=== PATIENT | female | born 1950 | race Caucasian/White ===

== ENCOUNTER → 2017-04-17 | Outpatient (CLI) | payer BC | LOC: BMCIMAGING 16:31 | PROVIDERS: ATTEND Internal Medicine | DX: R91.8 Other nonspecific abnormal finding of lung field (principal) ==

== ENCOUNTER 2017-04-21 18:46 | Inpatient (IN) | payer BC, OTHER ==
--- NOTE | 2017-04-21 19:04 | EDPHY ---
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 Chest x-ray reviewed and shows a left lower lobe developing opacity. Patient was started on Biaxin Monday evening and reports that she has been compliant and started feeling better until when she spiked a temperature again as high as 101.4F. She also notes over the last 1 day she has had burning with urination, urinary frequency. Patient denies any chest pain/palpitations/abdominal pain/nausea/vomiting. Did not receive her influenza vaccine this year but reports that she has swab for influenza a and B in the office and it was negative. She has not had any recent long distance trips. became concerned as last night she noted her O2 sats at home to be 80-82% on room air. Modifying Factors: Biaxin, Tylenol, ibuprofen Comment: ROS: see HPI Constitutional: No fever, no chills, no weight loss Eyes: No blurred vision Respiratory: No shortness of breath, no cough Cardiovascular: No chest pain Gastrointestinal: No nausea, no vomiting, no diarrhea Genitourinary: No dysuria Extremities: No myalgias Neurologic: No weakness, no numbness Skin: No rashes Hematologic: No bruising, no bleeding MEDICAL/SURGICAL/SOCIAL HISTORY: Medical/SURGICAL history: scoliosis L shoulder surgery abdominal surgery - fibroid tumor with internal bleeding "chronic pain and stress from flying" (airplane flight 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 Tympanic membranes clear. Oropharynx clear, no exudate and moist pink mucosa. Airway patent. No lymphadenopathy. No meningismus. Cardiovascular: Normal S1/S2, regular rate, regular rhythm, without murmur rub or gallop. PULMONARY/CHEST: Symmetrical and nontender. Clear to auscultation with diminished bases. Good air movement. No accessory muscle usage. ABDOMEN: Soft, nondistended, nontender, no rebound, no guarding, no peritoneal signs, no masses or organomegaly. No CVAT. EXTREMITIES: 2/2 pulses, strength 5/5, no deformities, no clubbing, no cyanosis or edema. NEUROLOGICAL: no focal neuro deficits. GCS 15. SKIN: Warm and dry, no erythema. no rash. Good capillary refill. Source: Patient Exam Limitations: No limitations - Personal History Current Tetanus/Diphtheria Vaccine: Yes Tetanus Vaccine Date: 2011 - Medical/Surgical History Hx Asthma: Yes Hx Chronic Respiratory Disease: No Hx Diabetes: No Hx Cardiac Disease: No Hx Renal Disease: No Hx Cirrhosis: No Hx Alcoholism: No Hx HIV/AIDS: No Hx Splenectomy or Spleen Trauma: No Other PMH: scoliosis. L shoulder surgery. abdominal surgery - fibroid tumor with internal bleeding. 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 osteoporosis/ R LEG FX - Social History Smoking Status: Never smoked Constitutional: Initial Vital Signs Temperature (C) 36.7 C 04/21/17 18:50 Heart Rate 88 04/21/17 18:50 Respiratory Rate 18 04/21/17 18:50 Blood Pressure 100/72 04/21/17 18:50 O2 Sat (%) 82 L 04/21/17 18:50 O2 Delivery Mode Room Air O2 (L/minute) 4 Allergies/Adverse Reactions: Cephalosporins Allergy (Verified 04/21/17 18:49) Home Medications: Medication Instructions Recorded Albuterol [Proventil Inhaler HFA 2 puffs IH Q4 PRN #1 mdi 12/12/13 (*)] Cymbalta 12/12/13 LYRICA 12/12/13 Lipitor 10 mg (RX) 12/12/13 Valium 12/12/13 Vicodin 5-300 mg Tablet 12/12/13 Carisoprodol [Soma] 350 mg PO 09/29/15 Biaxin (*) 04/21/17 Breo Ellipta 100-25 Mcg INH 04/21/17 Medical Decision Making - Diagnostics Imaging Results: Imaging Impressions Chest X-Ray 04/21/17 19:05 Impression: Favor linear atelectasis rather than pneumonia and the left lung base is unchanged since 4 days prior. Recommend follow-up radiograph in 4-6 weeks. ED Course/Re-evaluation: Chest x-ray, blood cultures, labs including lactic acid, urinalysis, EKG, IV fluids and IV medication Ordered Will evaluate for sepsis pulmonary versus urine etiology Vital signs noted upon arrival in O2 sats were 82% on room air; placed on 2 L nasal cannula and O2 sats came up to 96-99% Labs reviewed. D-dimer, troponin, proBNP within normal limits. Chest x-ray shows continued left lower lobe opacity Urinalysis shows infection; sent for urine culture As patient failed macrolide outpatient; given IV Levaquin 2100: ED decision to consult for admission for failure of outpatient treatment of pneumonia as well as urinary tract infection. Spoke with hospitalist Dr. Kennedy, who kindly accepts patient to admit and provide further care Differential Diagnosis: Shortness of breath including but not limited to pulmonary infectious process, COPD, asthma, pulmonary embolus and congestive heart failure. - Data Points Laboratory Results: Laboratory Results 04/21/17 19:12 04/21/17 19:12 04/21/17 04/21/17 04/21/17 20:24 19:12 19:12 WBC RBC Hgb Hct MCV MCH MCHC RDW Plt Count MPV Neut % (Auto) Lymph % (Auto) [place] % (Auto) Eos % (Auto) Baso % (Auto) Nucleat RBC Rel Count Absolute Neuts (auto) Absolute Lymphs (auto) Absolute Monos (auto) Absolute Eos (auto) Absolute Basos (auto) Absolute Nucleated RBC Immature Gran % Immature Gran # PT 12.8 SEC SEC (12.0-15.0) INR 0.97 (0.83-1.16) APTT 30.6 SEC SEC (23.0-38.0) D-Dimer 0.29 ug/mLFEU ug/mLFEU (0.00-0.50) VBG Lactic Acid Sodium 137 mEq/L mEq/L (134-144) Potassium 4.2 mEq/L mEq/L (3.5-5.2) Chloride 98 mEq/L mEq/L (97-110) Carbon Dioxide 29 mEq/l mEq/l (22-31) Anion Gap 10 mEq/L mEq/L (8-16) BUN 12 mg/dL mg/dL (7-23) Creatinine 0.8 mg/dL mg/dL (0.6-1.0) Estimated GFR > 60 Glucose 98 mg/dL mg/dL (70-100) Calcium 9.1 mg/dL mg/dL (8.5-10.4) Total Bilirubin 0.4 mg/dL mg/dL (0.1-1.4) Troponin I < 0.012 ng/mL ng/mL (0.000-0.034) NT-Pro-B Natriuret Pep 101 pg/mL pg/mL (0-125) Urine Color YELLOW Urine Appearance HAZY Urine pH 7.0 (5.0-7.5) Ur Specific [place] 1.006 (1.002-1.030) Urine Protein NEGATIVE (NEGATIVE) Urine Ketones NEGATIVE (NEGATIVE) Urine Blood 3+ H (NEGATIVE) Urine Nitrate NEGATIVE (NEGATIVE) Urine Bilirubin NEGATIVE (NEGATIVE) Urine Urobilinogen NEGATIVE EU EU (0.2-1.0) Ur Leukocyte Esterase 3+ H (NEGATIVE) Urine RBC 25-50 /hpf H /hpf (0-3) Urine WBC 50-182 /hpf H /hpf (0-3) Ur Epithelial Cells TRACE /lpf /lpf (NONE-1+) Urine Bacteria 1+ /hpf H /hpf (NONE SEEN) Urine Mucus 1+ /lpf /lpf (NONE-1+) Urine Glucose NEGATIVE (NEGATIVE) 04/21/17 04/21/17 19:12 19:12 WBC 7.52 10^3/uL 10^3/uL (3.80-9.50) RBC 4.22 10^6/uL 10^6/uL (4.18-5.33) Hgb 13.1 g/dL g/dL (12.6-16.3) Hct 38.6 % % (38.0-47.0) MCV 91.5 fL fL (81.5-99.8) MCH 31.0 pg pg (27.9-34.1) MCHC 33.9 g/dL g/dL (32.4-36.7) RDW 13.4 % % (11.5-15.2) Plt Count 246 10^3/uL 10^3/uL (150-400) MPV 10.4 fL fL (8.7-11.7) Neut % (Auto) 74.1 % % (39.3-74.2) Lymph % (Auto) 14.5 % L % (15.0-45.0) [place] % (Auto) 7.8 % % (4.5-13.0) Eos % (Auto) 2.8 % % (0.6-7.6) Baso % (Auto) 0.7 % % (0.3-1.7) Nucleat RBC Rel Count 0.0 % % (0.0-0.2) Absolute Neuts (auto) 5.57 10^3/uL 10^3/uL (1.70-6.50) Absolute Lymphs (auto) 1.09 10^3/uL 10^3/uL (1.00-3.00) Absolute Monos (auto) 0.59 10^3/uL 10^3/uL (0.30-0.80) Absolute Eos (auto) 0.21 10^3/uL 10^3/uL (0.03-0.40) Absolute Basos (auto) 0.05 10^3/uL 10^3/uL (0.02-0.10) Absolute Nucleated RBC 0.00 10^3/uL 10^3/uL (0-0.01) Immature Gran % 0.1 % % (0.0-1.1) Immature Gran # 0.01 10^3/uL 10^3/uL (0.00-0.10) PT INR APTT D-Dimer VBG Lactic Acid 0.7 mmol/L mmol/L (0.7-2.1) Sodium Potassium Chloride Carbon Dioxide Anion Gap BUN Creatinine Estimated GFR Glucose Calcium Total Bilirubin Troponin I NT-Pro-B Natriuret Pep Urine Color Urine Appearance Urine pH Ur Specific [place] Urine Protein Urine Ketones Urine Blood Urine Nitrate Urine Bilirubin Urine Urobilinogen Ur Leukocyte Esterase Urine RBC Urine WBC Ur Epithelial Cells Urine Bacteria Urine Mucus Urine Glucose Medications Given: Discontinued Medications Sodium Chloride (Ns) 1,000 mls @ 0 mls/hr IV EDNOW ONE; Wide Open PRN Reason: Protocol Stop: 04/21/17 19:20 Last Admin: 04/21/17 19:35 Dose: 1,000 mls Departure - Departure Disposition: [facility] Inpatient Acute Clinical Impression: Failure of outpatient treatment Community acquired pneumonia Qualifiers: Laterality: left Lung location: lower lobe of lung Qualified Code(s): J18.1 - Lobar pneumonia, unspecified organism Urinary tract infection Qualifiers: Urinary tract infection type: acute cystitis Hematuria presence: without hematuria Qualified Code(s): N30.00 - Acute cystitis without hematuria
[2017-04-21] MEDS ORDERED: NS 1,000 ML IV ONE (19:19)
[2017-04-21 19:23] LABS: PLATELET COUNT 246 10^3/uL (150-400)
[2017-04-21 19:34] LABS: INR 0.97 (0.83-1.16); PROTIME(PATIENT) 12.8 SEC (12.0-15.0)
--- NOTE | 2017-04-21 20:35 | CPEKG ---
Heart Rate: 77 RR Interval: 779 P-R Interval: 200 QRSD Interval: 84 QT Interval: 408 QTC Interval: 462 P [place]: 21 QRS [place]: 36 T Wave [place]: -8 EKG Severity - BORDERLINE ECG - EKG Impression: SINUS RHYTHM EKG Impression: BORDERLINE T ABNORMALITIES, INFERIOR LEADS Electronically Signed By: David Coleman 22-Apr-2017 00:06:33
--- NOTE | 2017-04-21 20:35 | CPEKG ---
Heart Rate: 77 RR Interval: 779 P-R Interval: 200 QRSD Interval: 84 QT Interval: 408 QTC Interval: 462 P [place]: 21 QRS [place]: 36 T Wave [place]: -8 EKG Severity - BORDERLINE ECG - EKG Impression: SINUS RHYTHM EKG Impression: BORDERLINE T ABNORMALITIES, INFERIOR LEADS Electronically Signed By: David Coleman 22-Apr-2017 00:06:33
[2017-04-21] MEDS ORDERED: CARISOPRODOL 350 MG TAB PO PRN (22:40)
[2017-04-21] MEDS ORDERED: ONDANSETRON DISINTEGRATING 4 MG TAB PO PRN (22:41)
[2017-04-21] MEDS ORDERED: ALBUTEROL 3 ML DEYVIAL IH PRN (22:41)
[2017-04-21] MEDS ORDERED: ONDANSETRON 4 MG/2 ML VIAL IVP PRN (22:41)
[2017-04-21] MEDS ORDERED: ACETAMINOPHEN 325 MG TAB PO PRN (22:41)
[2017-04-21] MEDS ORDERED: NS 500 ML IV ONE (22:53)
--- NOTE | 2017-04-21 22:59 | PDGENHP ---
History and Physical - Chief Complaint SOB, Fever - History of Present Illness 66 yo female who was diagnosed with Pneumonia on 04/17 and started on Biaxin. Initially improved but has relapsed in the last couple of days. Now also has UTI sx's. Is requiring supplemental O2. Has e/o of Hypotension. CXR shows left sided infiltrate. UA c/w likely UTI. Serum lactate is normal. No Leukocytosis. She had an unremarkable influenza testing last week. She also c/o intermittent nause and abd discomfort. No Diarrhea. Some constipation. Denies CP, palpitations, leg swelling. +urinary increased frequency and dysuria. PMHx;scoliosis, chronic pain, osteoporosis PSHx:L shoulder surgerym abdominal surgery - fibroid tumor with internal bleeding Social history: , No tobacco FmHx: DE History Information - Allergies/Home Medication List Allergies/Adverse Reactions: Cephalosporins Allergy (Verified 04/21/17 18:49) Home Medications: Carisoprodol [Soma] 350 mg PO TID PRN 09/29/15 [Last Taken 04/20/17] Albuterol [Ventolin Hfa Inhaler] 2 puffs IH Q4 PRN 04/21/17 [Last Taken 08:00] Alendronate Sodium [Fosamax 70 MG (*)] 70 mg PO FR@0700 04/21/17 [Last Taken 09/02] Atorvastatin Calcium [Lipitor 10 mg (*)] 10 mg PO HS 04/21/17 [Last Taken ] Carboxymethylcellulos/Glycerin [Refresh Optive Eye Drops] 1 drop OP QID PRN 09/02 [Last Taken Unknown] Cholecalciferol Vit D3 [Vitamin D3 (*)] 5,000 units PO DAILY 04/21/17 [Last Taken Unknown] Clarithromycin [Biaxin (*)] 500 mg PO BID 04/21/17 [Last Taken 04/21/17 08:00] DULoxetine [Cymbalta 60 MG (*)] 60 mg PO DAILY 04/21/17 [Last Taken 04/21/17 08: 00] Diazepam [Valium 10 MG (*)] 5 mg PO HS 04/21/17 [Last Taken 04/20/17] Fluticasone/Vilanterol [Breo Ellipta 100-25 Mcg INH] 1 each IH BID 04/21/17 [ Last Taken 04/21/17 08:00] HYDROcodone/CPM TUSSIONEX [Tussionex Suspension (RX)] 5 ml PO BID 04/21/17 [ Last Taken 04/21/17 09:00] Herbals/Supplements -Info Only 1 ea PO DAILY 04/21/17 [Last Taken Unknown] Lidocaine 5% [Lidoderm 5% Patch (*)] 3 ea TD DAILY PRN 04/21/17 [Last Taken Unknown] Naproxen 500 mg PO BID PRN 04/21/17 [Last Taken Unknown] Pregabalin [Lyrica 75mg (*)] 75 mg PO BID 04/21/17 [Last Taken 04/21/17 08:00] Vicodin Tab 5/500mg 1 tab PO Q4-6PRN PRN 04/21/17 [Last Taken 04/20/17] oxyCODONE IR [Oxycodone Ir (*)] 5 - 10 mg PO Q4 PRN 04/21/17 [Last Taken Unknown ] I have personally reviewed and updated: medical history, surgical history - Social History Smoking Status: Never smoked Review of Systems Review of Systems: ROS: 10pt was reviewed & negative except for what was stated in HPI & below Physical Exam Physical Exam: Temp Pulse Resp BP Pulse Ox 36.7 C 88 20 89/58 L 94 04/21/17 22:10 04/21/17 22:10 04/21/17 22:10 04/21/17 22:10 04/21/17 22:10 O2 (L/minute) 2 Constitutional: no apparent distress Eyes: PERRL, EOMI Ears, Nose, Mouth, Throat: dry mucous membranes Cardiovascular: regular rate and rhythym, No edema Respiratory: no respiratory distress, rhonchi Gastrointestinal: normoactive bowel sounds, soft, non-tender abdomen Genitourinary: no bladder fullness, no bladder tenderness Skin: warm Musculoskeletal: full muscle strength Neurologic: AAOx3, sensation intact bilaterally Psychiatric: interacting appropriately, not anxious, not encephalopathic Lab Data & Imaging Review 04/21/17 19:12 04/21/17 19:12 WBC 7.52 10^3/uL (3.80-9.50) 04/21/17 19:12 RBC 4.22 10^6/uL (4.18-5.33) 04/21/17 19:12 Hgb 13.1 g/dL (12.6-16.3) 04/21/17 19:12 Hct 38.6 % (38.0-47.0) 04/21/17 19:12 MCV 91.5 fL (81.5-99.8) 04/21/17 19:12 MCH 31.0 pg (27.9-34.1) 04/21/17 19:12 MCHC 33.9 g/dL (32.4-36.7) 04/21/17 19:12 RDW 13.4 % (11.5-15.2) 04/21/17 19:12 Plt Count 246 10^3/uL (150-400) 04/21/17 19:12 MPV 10.4 fL (8.7-11.7) 04/21/17 19:12 Neut % (Auto) 74.1 % (39.3-74.2) 04/21/17 19:12 Lymph % (Auto) 14.5 % (15.0-45.0) L 04/21/17 19:12 [place] % (Auto) 7.8 % (4.5-13.0) 04/21/17 19:12 Eos % (Auto) 2.8 % (0.6-7.6) 04/21/17 19:12 Baso % (Auto) 0.7 % (0.3-1.7) 04/21/17 19:12 Nucleat RBC Rel Count 0.0 % (0.0-0.2) 04/21/17 19:12 Absolute Neuts (auto) 5.57 10^3/uL (1.70-6.50) 04/21/17 19:12 Absolute Lymphs (auto) 1.09 10^3/uL (1.00-3.00) 04/21/17 19:12 Absolute Monos (auto) 0.59 10^3/uL (0.30-0.80) 04/21/17 19:12 Absolute Eos (auto) 0.21 10^3/uL (0.03-0.40) 04/21/17 19:12 Absolute Basos (auto) 0.05 10^3/uL (0.02-0.10) 04/21/17 19:12 Absolute Nucleated RBC 0.00 10^3/uL (0-0.01) 04/21/17 19:12 Immature Gran % 0.1 % (0.0-1.1) 04/21/17 19:12 Immature Gran # 0.01 10^3/uL (0.00-0.10) 04/21/17 19:12 PT 12.8 SEC (12.0-15.0) 04/21/17 19:12 INR 0.97 (0.83-1.16) 04/21/17 19:12 APTT 30.6 SEC (23.0-38.0) 04/21/17 19:12 D-Dimer 0.29 ug/mLFEU (0.00-0.50) 04/21/17 19:12 VBG Lactic Acid 0.7 mmol/L (0.7-2.1) 04/21/17 19:12 Sodium 137 mEq/L (134-144) 04/21/17 19:12 Potassium 4.2 mEq/L (3.5-5.2) 04/21/17 19:12 Chloride 98 mEq/L (97-110) 04/21/17 19:12 Carbon Dioxide 29 mEq/l (22-31) 04/21/17 19:12 Anion Gap 10 mEq/L (8-16) 04/21/17 19:12 BUN 12 mg/dL (7-23) 04/21/17 19:12 Creatinine 0.8 mg/dL (0.6-1.0) 04/21/17 19:12 Estimated GFR > 60 04/21/17 19:12 Glucose 98 mg/dL (70-100) 04/21/17 19:12 Calcium 9.1 mg/dL (8.5-10.4) 04/21/17 19:12 Total Bilirubin 0.4 mg/dL (0.1-1.4) 04/21/17 19:12 Troponin I < 0.012 ng/mL (0.000-0.034) 04/21/17 19:12 NT-Pro-B Natriuret Pep 101 pg/mL (0-125) 04/21/17 19:12 Urine Color YELLOW 04/21/17 20:24 Urine Appearance HAZY 04/21/17 20:24 Urine pH 7.0 (5.0-7.5) 04/21/17 20:24 Ur Specific [place] 1.006 (1.002-1.030) 04/21/17 20:24 Urine Protein NEGATIVE (NEGATIVE) 04/21/17 20:24 Urine Ketones NEGATIVE (NEGATIVE) 04/21/17 20:24 Urine Blood 3+ (NEGATIVE) H 04/21/17 20:24 Urine Nitrate NEGATIVE (NEGATIVE) 04/21/17 20:24 Urine Bilirubin NEGATIVE (NEGATIVE) 04/21/17 20:24 Urine Urobilinogen NEGATIVE EU (0.2-1.0) 04/21/17 20:24 Ur Leukocyte Esterase 3+ (NEGATIVE) H 04/21/17 20:24 Urine RBC 25-50 /hpf (0-3) H 04/21/17 20:24 Urine WBC 50-182 /hpf (0-3) H 04/21/17 20:24 Ur Epithelial Cells TRACE /lpf (NONE-1+) 04/21/17 20:24 Urine Bacteria 1+ /hpf (NONE SEEN) H 04/21/17 20:24 Urine Mucus 1+ /lpf (NONE-1+) 04/21/17 20:24 Urine Glucose NEGATIVE (NEGATIVE) 04/21/17 20:24 Assessment & Plan Assessment: #Community acquired pneumonia, Left, with failure of outpatient treatment. She does not have leukocytosis #Urinary tract infection (Acute) #Hypotension, ?Early sepsis, she reports that her BP runs in the 120's, currently low 90s. unremarkable serum lactate Plan: Observation IVF, will give bolus now Cont Levaquin Check procalcitonin Repeat Influenza testing Await cultures check sputum culture SCD's Full code
[2017-04-22] MEDS: NS 1,000 ML IV SCH ×2 (00:02→06:25)
[2017-04-22 05:49] LABS: PLATELET COUNT 221 10^3/uL (150-400)
[2017-04-22] MEDS: oxyCODONE IR 5 MG TAB PO PRN (06:41)
[2017-04-22] MEDS ORDERED: LIDOCAINE 5% 1 EA PATCH TD PRN (09:39)
[2017-04-22] MEDS ORDERED: ALBUTEROL 200 PUFFS/18 GM MDI IH PRN (09:39)
[2017-04-22] MEDS ORDERED: CARBOXYMETHYLCELLULOSE 1% 0.4 ML DROPERETTE EACHEYE PRN (10:24)
--- NOTE | 2017-04-22 10:29 | HOSPPROG ---
Hospitalist Progress Note Assessment/Plan: 66 yo female who was diagnosed with Pneumonia on 04/17 and started on Biaxin. Initially improved but has relapsed in the last couple of days. Now also has UTI sx's. Is requiring supplemental O2. Today is my first encounter with the patient/ chart reviewed. *Community acquired pna suspect it's viral evaluated chest xray/ atelectasis on Levaquin Procalcitonin is .20, low likelihood of bacterial infection afebrile, wbc stable requiring 2 liters PCR resp panel show no organism lactate stable blood cx are pending *acute hypoxemia d dimer stable no hx of smoking O2 sats on room air are 85% nursing staff to provide an IS will cont watching BNP is stable *chronic pain on continuous, chronic opioids patient has chronic back pain encouraged her to look at Physical therapy, pool therapy *persistent coughing trial of Tessalon Perls *hypotension asymptomatic patient takes scheduled narcotics *UTI awaiting urine cx *Plan: patient still hypoxic and requiring O2/ she will require another midnight stay for treatment making her IP status. Trial of Zyrtec. Subjective: Laurence isn't feeling quite well enough today for dc but overall is better. Objective: Vital Signs Temp Pulse Resp BP Pulse Ox 36.6 C 80 16 104/65 94 04/22/17 07:18 04/22/17 07:18 04/22/17 07:18 04/22/17 07:18 04/22/17 07:18 Microbiology 04/21/17 23:40 Respiratory Panel (PCR) - Final Nasal, Sinus - Swab No Organism Detected Laboratory Results 04/22/17 05:17 04/22/17 05:17 04/21/17 04/22/17 04/23/17 05:59 05:59 04:59 Intake Total 1500 Balance 1500 PT 12.8 SEC (12.0-15.0) 04/21/17 19:12 INR 0.97 (0.83-1.16) 04/21/17 19:12 - Physical Exam Constitutional: no apparent distress, appears nourished, not in pain Eyes: PERRL Ears, Nose, Mouth, Throat: hearing normal Cardiovascular: regular rate and rhythym Respiratory: no respiratory distress, other (crackles at right base) Gastrointestinal: normoactive bowel sounds Skin: warm Musculoskeletal: full muscle strength Neurologic: AAOx3 Psychiatric: interacting appropriately ICD10 Worksheet Patient Problems: Problems Problem Status Onset Community acquired pneumonia Acute Failure of outpatient treatment Acute Urinary tract infection Acute
[2017-04-22] MEDS ORDERED: NAPROXEN SODIUM 220 MG TAB PO PRN (10:30)
[2017-04-22] MEDS: HYDROcodone/CPM TUSSIONEX 5 ML UDSYR PO SCH ×2 (11:01→20:43)
[2017-04-22] MEDS ORDERED: BENZONATATE 100 MG CAP PO PRN (11:09)
[2017-04-22] MEDS: PREGABALIN 75 MG CAP PO SCH ×2 (11:34→20:43)
[2017-04-22] MEDS: DULoxetine 60 MG CAP PO SCH (11:35)
[2017-04-22] MEDS: guaiFENesin 600 MG TAB.ER PO SCH ×2 (11:35→20:43)
--- NOTE | 2017-04-22 13:25 | PDMN ---
Medical Necessity Medical necessity: C/M review: Patient meets INPT criteria under [facility] [place] M-282 Pneumonia, community acquired; Acute and persistently worsening community acquired pneumonia initially treated with course of oral Biaxin since 2016 prior to this admission, failed outpt. 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
--- NOTE | 2017-04-22 13:25 | PDMN ---
Medical Necessity Medical necessity: C/M review: Patient [place] [facility] [place] Pneumonia, community acquired; Acute and persistently worsening community acquired pneumonia initially treated with course of oral Biaxin since 2016 prior to this admission, failed outpt. 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
--- NOTE | 2017-04-22 13:25 | PDMN ---
Medical Necessity Medical necessity: C/M review: Patient meets INPT criteria under [facility] [place] M-282 Pneumonia, community acquired; Acute and persistently worsening community acquired pneumonia initially treated with course of oral Biaxin since 2016 prior to this admission, failed outpt. 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
[2017-04-22] MEDS ORDERED: NS 250 ML IV ONE (14:00)
[2017-04-22] MEDS: IPRATROPIUM/ALBUTEROL 3 ML DEYVIAL IH SCH (17:13)
--- NOTE | 2017-04-22 17:40 | ASMTCMCOM ---
CM Note CM Note Notes: Reviewed chart for discharge plan, pt's progress. Pt admitted for community acquired pneumonia, likely viral. Per MD notes, pt was initially improving but is now requiring supplemental oxygen. 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 Anticipate pt will likely d/c home independently when stable, but may require home oxygen. CM will cont to follow for any potential needs. Current Discharge Plan: Home Independently w/ family support and poss home oxygen Date Signed: 04/22/2017 05:39 PM Electronically Signed By:Elaine Garcia RN
--- NOTE | 2017-04-22 17:40 | ASMTCMCOM ---
CM Note CM Note Notes: Reviewed chart for discharge plan, pt's progress. Pt admitted for community acquired pneumonia, likely viral. Per MD notes, pt was initially improving but is now requiring supplemental oxygen. 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 Anticipate pt will likely d/c home independently when stable, but may require home oxygen. CM will cont to follow for any potential needs. Current Discharge Plan: Home Independently w/ family support and poss home oxygen Date Signed: 04/22/2017 05:39 PM Electronically Signed By:Elaine Garcia RN
--- NOTE | 2017-04-22 17:40 | ASMTCMCOM ---
CM Note CM Note Notes: Reviewed chart for discharge plan, pt's progress. Pt admitted for community acquired pneumonia, likely viral. Per MD notes, pt was initially improving but is now requiring supplemental oxygen. 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 Anticipate pt will likely d/c home independently when stable, but may require home oxygen. CM will cont to follow for any potential needs. Current Discharge Plan: Home Independently w/ family support and poss home oxygen Date Signed: 04/22/2017 05:39 PM Electronically Signed By:Elaine Garcia RN
[2017-04-22] MEDS: ATORVASTATIN CALCIUM 10 MG TAB PO SCH (20:43)
[2017-04-22] MEDS: Fluticasone/Vilanterol [Breo Ellipta 100-25 Mcg Inh] 1 EACH IH SCH (22:02)
[2017-04-23] MEDS: IPRATROPIUM/ALBUTEROL 3 ML DEYVIAL IH SCH ×5 (06:21→23:45)
[2017-04-23] MEDS ORDERED: Herbals/Supplements -Info Only PO SCH (09:00)
[2017-04-23] MEDS: CHOLECALCIFEROL VIT D3 1,000 UNITS TAB PO SCH (09:53)
[2017-04-23] MEDS: PREGABALIN 75 MG CAP PO SCH ×2 (09:53→20:48)
[2017-04-23] MEDS: DULoxetine 60 MG CAP PO SCH (09:53)
[2017-04-23] MEDS: guaiFENesin 600 MG TAB.ER PO SCH ×2 (09:53→20:48)
[2017-04-23] MEDS: ENOXAPARIN 40 MG/0.4 ML SYR SC SCH (09:53)
[2017-04-23] MEDS: CETIRIZINE 10 MG TAB PO SCH (09:53)
[2017-04-23] MEDS: HYDROcodone/CPM TUSSIONEX 5 ML UDSYR PO SCH (10:10)
--- NOTE | 2017-04-23 10:28 | HOSPPROG ---
Hospitalist Progress Note Assessment/Plan: 66 yo female who was diagnosed with Pneumonia on 04/17 and started on Biaxin. Initially improved but has relapsed in the last couple of days. Now also has UTI sx's. Is requiring supplemental O2. *Community acquired pna suspect it's viral evaluated chest xray/ atelectasis on Levaquin Procalcitonin is .20, low likelihood of bacterial infection afebrile, wbc stable requiring 2 liters PCR resp panel show no organism lactate stable blood cx showing no growth at this tie *acute hypoxemia d dimer stable no hx of smoking O2 sats on room air are 85% BNP is stable she is not improving w nebulizers will get a CTA to r/o PE or any other etiology *chronic pain on continuous, chronic opioids patient has chronic back pain encouraged her to look at Physical therapy, pool therapy *persistent coughing trial of Tessalon Perls *hypotension asymptomatic patient takes scheduled narcotics possibly causing this *pyuria urine cx shows skin beatriz *Plan: patient still hypoxic and requiring O2/ likely a viral pna but will get a CTA to r/o PE Subjective: Laurence isn't feeling well. Objective: Vital Signs Temp Pulse Resp BP Pulse Ox 36.4 C 87 14 108/60 94 04/23/17 08:00 04/23/17 08:00 04/23/17 08:00 04/23/17 08:00 04/23/17 08:00 04/22/17 04/23/17 04/24/17 06:59 05:59 05:59 Intake Total Balance PT 12.8 SEC (12.0-15.0) 04/21/17 19:12 INR 0.97 (0.83-1.16) 04/21/17 19:12 - Physical Exam Constitutional: no apparent distress, appears nourished, not in pain Eyes: PERRL Ears, Nose, Mouth, Throat: hearing normal Cardiovascular: regular rate and rhythym Respiratory: no respiratory distress, rhonchi (at the base / right), other Gastrointestinal: normoactive bowel sounds Skin: warm, No normal color (pale) Musculoskeletal: generalized weakness Neurologic: AAOx3 Psychiatric: interacting appropriately ICD10 Worksheet Patient Problems: Problems Problem Status Onset Community acquired pneumonia Acute Failure of outpatient treatment Acute Urinary tract infection Acute
[2017-04-23] MEDS: Fluticasone/Vilanterol [Breo Ellipta 100-25 Mcg Inh] 1 EACH IH SCH ×2 (10:35→23:56)
[2017-04-23] MEDS: FLUTICASONE PO SCH ×2 (11:05→23:48)
[2017-04-23] MEDS: SALMETEROL PO SCH ×2 (11:05→23:48)
[2017-04-23] MEDS ORDERED: IOPAMIDOL (ISOVUE 370) 100 ML BTL IV ONE (11:19)
[2017-04-23] MEDS ORDERED: IBUPROFEN 200 MG TAB PO PRN (15:34)
[2017-04-23] MEDS: ATORVASTATIN CALCIUM 10 MG TAB PO SCH (20:48)
[2017-04-24 05:17] LABS: PLATELET COUNT 288 10^3/uL (150-400)
[2017-04-24] MEDS: IPRATROPIUM/ALBUTEROL 3 ML DEYVIAL IH SCH ×4 (06:19→21:53)
[2017-04-24] MEDS ORDERED: ALBUTEROL 200 PUFFS/18 GM MDI IH PRN (09:39)
[2017-04-24] MEDS: FLUTICASONE PO SCH ×2 (10:56→20:21)
[2017-04-24] MEDS: SALMETEROL PO SCH ×2 (10:56→20:21)
[2017-04-24] MEDS: Fluticasone/Vilanterol [Breo Ellipta 100-25 Mcg Inh] 1 EACH IH SCH (10:59)
[2017-04-24] MEDS: ENOXAPARIN 40 MG/0.4 ML SYR SC SCH (11:23)
[2017-04-24] MEDS: CHOLECALCIFEROL VIT D3 1,000 UNITS TAB PO SCH (11:23)
[2017-04-24] MEDS: CETIRIZINE 10 MG TAB PO SCH (11:23)
[2017-04-24] MEDS: guaiFENesin 600 MG TAB.ER PO SCH ×2 (11:23→20:20)
[2017-04-24] MEDS: PREGABALIN 75 MG CAP PO SCH ×2 (11:23→20:19)
[2017-04-24] MEDS: DULoxetine 60 MG CAP PO SCH (11:23)
--- NOTE | 2017-04-24 11:26 | HOSPPROG ---
Hospitalist Progress Note Assessment/Plan: 66 yo female who was diagnosed with Pneumonia on 04/17 and started on Biaxin. Initially improved but has relapsed in the last couple of days. Now also has UTI sx's. Is requiring supplemental O2. *Community acquired pna/viral evaluated chest xray/ atelectasis dc Levaquin Procalcitonin is .20, low likelihood of bacterial infection afebrile, wbc stable requiring 2 liters PCR resp panel show no organism lactate stable blood cx showing no growth at this time *acute hypoxemia d dimer stable no hx of smoking O2 sats on room air are 85% BNP is stable she is not improving w nebulizers CTA shows no PE, pleural effusions, pulm edema awaiting echo report *asthma sees Dr James in OP setting *chronic pain on continuous, chronic opioids patient has chronic back pain encouraged her to look at Physical therapy, pool therapy *cognitive concerns when I saw her yesterday, she denied having asthma she didn't recall she had seen a physical medicine specialist in the past until today having difficulty with recall of info will ask ST to help further evaluate holding Soma *persistent coughing trial of Tessalon Perls said she had been on steroids recently without improvement *hypotension asymptomatic patient takes scheduled narcotics (holding for now) possibly causing this *pyuria urine cx shows skin beatriz *Plan: will ask pulmonology to see (appreciate Dr Brannon)/ she is feeling poorly.Unable to complete PFT's due to coughing/she has possible restriction?, holding off trial of lasix due to low bp. Subjective: Laurence is feeling poorly today. Objective: Vital Signs Temp Pulse Resp BP Pulse Ox 36.4 C 94 20 98/62 L 90 L 04/24/17 10:49 04/24/17 10:49 04/24/17 10:49 04/24/17 10:49 04/24/17 10:49 Laboratory Results 04/24/17 04:41 04/24/17 04:41 04/23/17 04/24/17 04/25/17 05:59 05:59 05:59 Intake Total 750 Balance 750 PT 12.8 SEC (12.0-15.0) 04/21/17 19:12 INR 0.97 (0.83-1.16) 04/21/17 19:12 - Physical Exam Constitutional: chronically ill appearing, uncomfortable Eyes: PERRL Ears, Nose, Mouth, Throat: ears appear normal Cardiovascular: regular rate and rhythym Respiratory: no respiratory distress, reduced air movement (bibasilar but clearer than yesterday's evaluation) Skin: warm, No normal color (pale) Musculoskeletal: generalized weakness Neurologic: AAOx3 Psychiatric: interacting appropriately, poor insight, poor judgement, poor memory ICD10 Worksheet Patient Problems: Problems Problem Status Onset Community acquired pneumonia Acute Failure of outpatient treatment Acute Urinary tract infection Acute
[2017-04-24] MEDS: oxyCODONE IR 5 MG TAB PO PRN (11:57)
--- NOTE | 2017-04-24 17:35 | GCON ---
[f rep st] CONSULTATION PULMONARY/CRITICAL CARE CONSULTATION DATE OF CONSULTATION: 04/24/2017 REFERRING PHYSICIAN: Geovanna Spivey NP REASON FOR REFERRAL: Evaluation and management of hypoxemia. HISTORY: The patient is a 66-year-old woman who denies any respiratory problems until about 2 years ago when she started to have progressive cough. She was seen by Dr. James as an outpatient after a chest x-ray showed bilateral upper lobe pneumonia that was treated with antibiotics. She had improve d at that point, but continued to have cough, so he prescribed a prednisone taper. Her symptoms impr daja with that. He did pulmonary function tests which showed a nonspecific pattern favoring restrict ion with an FEV1 of 65% and FEV1/FVC of 92%. Respiratory flows and volumes increased to 30/30% with bronchodilator. Her diffusing capacity was low normal at 80. She remained on Breo until a while ago when she apparently changed to Advair. About 3 weeks ago, she started to have some increased cough that was initially productive of some yellowish sputum. She was treated with Biaxin and initially im proved. The yellow sputum that initially accompanied the cough improved; however, she also developed some symptoms of a urinary tract infection. She was admitted to the hospital 3 days ago because of these persistent symptoms, as well as a chest x-ray that showed some linear changes in the left base. She has been treated with DuoNeb and guaifenesin, as well as Advair. She reports that she is feeli ng a bit better, and states that today is about the best she has felt since her initial illness. She has minimal sputum production with her cough and is able to take deeper breaths this afternoon than she has over the past few weeks. She does not feel feverish. She denies chest pain. PAST MEDICAL HISTORY: 1. Scoliosis. 2. Chronic pain. 3. Osteoporosis. MEDICATIONS: At the time of admission include an albuterol inhaler, Soma, lidocaine patch, oxycodone , Tussionex cough medicine, Lyrica, diazepam, atorvastatin, duloxetine, Advair, and phentermine. ALLERGIES: Cephalosporins. SOCIAL HISTORY: The patient has never smoked. She has no occupational exposures to dust or fumes. FAMILY HISTORY: Unremarkable. REVIEW OF SYSTEMS: A 10-point review of systems adds nothing to the History of Present Illness. PHYSICAL EXAMINATION: GENERAL: The patient is awake, alert, in no acute distress. VITAL SIGNS: Bl ood pressure is 101/62 with a heart rate of 84. Oxygen saturations are 92% on 2 L. She is afebrile. HEENT: Normocephalic and atraumatic. No icterus. NECK: No JVD. Trachea is midline. CHEST: Sh e has some rales in the right more so than left base. CARDIAC: Regular rate and rhythm without murm ur. ABDOMEN: Soft, nontender. Bowel sounds are present. EXTREMITIES: No clubbing, cyanosis, or e tiffanie. NEURO: The patient is awake and alert. She is a somewhat vague historian. She has no gross motor or sensory deficits. LABORATORY: White blood count is 5.0, hemoglobin is 12.7. Chemistry group is normal. Albumin is 3. 2. A procalcitonin is 0.2. TSH is 0.3. BNP is 106. Venous lactate was 0.7 at the time of admissio n. CT scan of the chest from yesterday shows no pulmonary embolism. There is some bibasilar atelect asis and some very mild edema. Images reviewed. ASSESSMENT: Cough and hypoxemia. This is likely due to bronchitis that could be infectious. She lucero s had appropriate treatment with Biaxin, and I do not feel that further antibiotics are necessary sin ce she is afebrile and has no focal infiltrates or fever. Her hypoxemia is likely due in large part to some atelectasis in the bases as well as perhaps exacerbation of her asthma. RECOMMENDATIONS: 1. Incentive spirometry every 2 hours as tolerated. 2. Continue Advair, DuoNeb, and guaifenesin. She has difficulty expectorating sputum. We could add Mucinex, but I do not think that is likely to be helpful right now. /[id number]/MODL
[2017-04-24] MEDS: ATORVASTATIN CALCIUM 10 MG TAB PO SCH (20:20)
[2017-04-24] MEDS ORDERED: FLUTICASONE/SALMETER 250/50MCG DISKUS IH SCH (21:00)
[2017-04-25] MEDS: IPRATROPIUM/ALBUTEROL 3 ML DEYVIAL IH SCH ×4 (05:16→23:44)
[2017-04-25] MEDS: PREGABALIN 75 MG CAP PO SCH ×2 (10:42→20:44)
[2017-04-25] MEDS: DULoxetine 60 MG CAP PO SCH (10:42)
[2017-04-25] MEDS: CHOLECALCIFEROL VIT D3 1,000 UNITS TAB PO SCH (10:43)
[2017-04-25] MEDS: CETIRIZINE 10 MG TAB PO SCH (10:43)
[2017-04-25] MEDS: guaiFENesin 600 MG TAB.ER PO SCH ×2 (10:44→20:44)
[2017-04-25] MEDS: ENOXAPARIN 40 MG/0.4 ML SYR SC SCH (10:45)
[2017-04-25] MEDS: FLUTICASONE PO SCH (11:32)
[2017-04-25] MEDS: SALMETEROL PO SCH (11:32)
--- NOTE | 2017-04-25 11:41 | HOSPPROG ---
Hospitalist Progress Note Assessment/Plan: 66 yo female who was diagnosed with Pneumonia on 04/17 and started on Biaxin. Initially improved but has relapsed in the last couple of days. Now also has UTI sx's. Is requiring supplemental O2. *Community acquired pna/viral evaluated chest xray/ atelectasis dc Levaquin Procalcitonin is .20, low likelihood of bacterial infection afebrile, wbc stable requiring 2 liters PCR resp panel show no organism lactate stable blood cx showing no growth at this time *acute hypoxemia d dimer stable no hx of smoking O2 sats on room air are 85% BNP is stable she is not improving w nebulizers CTA shows no PE, pleural effusions, pulm edema echo shows no abnormalities appreciate Dr Brannon *asthma sees Dr James in OP setting *chronic pain on continuous, chronic opioids patient has chronic back pain encouraged her to look at Physical therapy, pool therapy *acute encephalopathy appreciate speech therapy/has some trouble w detail she is much clearer today cont holding Soma *persistent coughing trial of Tessalon Perls said she had been on steroids recently without improvement better today *hypotension asymptomatic patient takes scheduled narcotics (holding for now) possibly causing this *pyuria urine cx shows skin beatriz *Plan: Will order home oxygen, and she is feeling well will go ahead and discharge home. Will have her follow up with Dr. James Subjective: Laurence says she may be feeling a bit better today. Objective: Vital Signs Temp Pulse Resp BP Pulse Ox 37 C 92 12 104/63 94 04/25/17 08:00 04/25/17 08:00 04/25/17 08:00 04/25/17 08:00 04/25/17 08:00 Laboratory Results 04/24/17 04:41 04/24/17 04:41 04/24/17 04/25/17 04/26/17 05:59 05:59 05:59 Intake Total 750 300 Balance 750 300 PT 12.8 SEC (12.0-15.0) 04/21/17 19:12 INR 0.97 (0.83-1.16) 04/21/17 19:12 - Physical Exam Constitutional: no apparent distress, chronically ill appearing Eyes: PERRL Ears, Nose, Mouth, Throat: hearing normal Cardiovascular: regular rate and rhythym Respiratory: no respiratory distress, reduced air movement (right base) Gastrointestinal: normoactive bowel sounds Skin: warm Musculoskeletal: generalized weakness Neurologic: AAOx3 Psychiatric: interacting appropriately, flat affect ICD10 Worksheet Patient Problems: Problems Problem Status Onset Community acquired pneumonia Acute Failure of outpatient treatment Acute Urinary tract infection Acute
--- NOTE | 2017-04-25 11:43 | PDHOMEO2F ---
Home Oxygen Face to Face Home Orders: I certify that a physician or a nurse practitioner or physician's pediatric physical therapy assistant has had a avfj-au-lgnt encounter with this patient on the date of this order due to the diagnosis listed, which relates to the primary reason the patient requires home oxygen. Alternative treatments have been tried, or considered, and deemed ineffective. It is anticipated that supplemental oxygen will result in improvement with treatment. Home oxygen qualifying diagnosis: acute asthma exacerbation SpO2 on room air (%): 85% Frequency of home oxygen needed: continuous Home oxygen liters per minute: 2 Home oxygen delivery device: nasal cannula Concentrator: Yes E-tanks for mobility and back up: Yes If ordering portable O2, is the patient mobile in the home?: Yes I certify that, based on these findings, the home oxygen is medically necessary for this patient for the following length of time. Length of time home oxygen needed: 99 years
--- NOTE | 2017-04-25 11:43 | PDHOMEO2F ---
Home Oxygen Face to Face Home Orders: I certify that a physician or a nurse practitioner or physician's optometry assistant has had a qihz-ec-acca encounter with this patient on the date of this order due to the diagnosis listed, which relates to the primary reason the patient requires home oxygen. Alternative treatments have been tried, or considered, and deemed ineffective. It is anticipated that supplemental oxygen will result in improvement with treatment. Home oxygen qualifying diagnosis: acute asthma exacerbation SpO2 on room air (%): 85% Frequency of home oxygen needed: continuous Home oxygen liters per minute: 2 Home oxygen delivery device: nasal cannula Concentrator: Yes E-tanks for mobility and back up: Yes If ordering portable O2, is the patient mobile in the home?: Yes I certify that, based on these findings, the home oxygen is medically necessary for this patient for the following length of time. Length of time home oxygen needed: 99 years
--- NOTE | 2017-04-25 11:43 | PDHOMEO2F ---
Home Oxygen Face to Face Home Orders: I certify that a physician or a nurse practitioner or physician's cashier assistant has had a ltkw-in-jzii encounter with this patient on the date of this order due to the diagnosis listed, which relates to the primary reason the patient requires home oxygen. Alternative treatments have been tried, or considered, and deemed ineffective. It is anticipated that supplemental oxygen will result in improvement with treatment. Home oxygen qualifying diagnosis: acute asthma exacerbation SpO2 on room air (%): 85% Frequency of home oxygen needed: continuous Home oxygen liters per minute: 2 Home oxygen delivery device: nasal cannula Concentrator: Yes E-tanks for mobility and back up: Yes If ordering portable O2, is the patient mobile in the home?: Yes I certify that, based on these findings, the home oxygen is medically necessary for this patient for the following length of time. Length of time home oxygen needed: 99 years
--- NOTE | 2017-04-25 12:42 | ECHO ---
[email or web address] [address] [address] Main: [phone] Fax: Transthoracic Echocardiogram Name: KENDRICK HUTSON MR#: [id number] Study Date: 04/24/2017 Study Time: 08:28 AM Date of : 1950 Age: 66 year(s) Height: 162.6 cm (64 in.) Weight: 67.59 kg (149 lb.) BSA: 1.73 m2 Gender: Female Examination: Echo Indication: Increase in O2 needs, Pulmonary edema by CT scan Image Quality: Contrast: Requested by: Geovanna Spivey BP: 90 mmHg/65 mmHg Heart Rate: Rhythm: Normal sinus rhythm Indication: Increase in O2 needs, Pulmonary edema by CT scan Procedure Staff Juice Mixer: Ulises Meyer Reading Physician: Owen Washington Requesting Provider: Conclusions: Global hypercontractility of the left ventricle. EF is 71 %. Diastolic dysfunction is present. . Trivial mitral valve regurgitation. Trivial tricuspid valve regurgitation. Measurements: Chambers Valvular Assessment AV/MV Valvular Assessment TV/PV Normal Normal Normal Name Value Range Name Value Range Name Value Range Ao Mary (MM): 2.8 cm (2.2 cm-3.7 AV Vmax: 1.14 m/s (1 m/s-1.7 TR Vmax: 1.81 mm/s ( - ) cm) m/s) TR PGmax: 13 mmHg ( - ) IVSd (2D): 0.9 cm (0.6 cm-1.1 AV maxP mmHg ( - ) syst. PAP: 18 mmHg ( - ) cm) LVOT Vmax: 0.89 m/s (0.7 m/s-1.1 PV Vmax: 0.90 m/s (0.6 m/s-0.9 LVDd (2D): 3.3 cm (3.9 cm-5.3 m/s) m/s) cm) MV E Vmax: 0.73 m/s ( - ) PV PGmax: 3 mmHg ( - ) LVDs (2D): 2.0 cm (2.1 cm-4 MV A Vmax: 0.85 m/s ( - ) cm) MV E/A: 0.86 ( - ) LVPWd (2D): 1.0 cm ( - ) LVEF (2D): 71 (>=54 %) Continued Measurements: Chambers Valvular Assessment AV/MV Valvular Assessment TV/PV Name Value Name Value Name Value LADs Lon.5 cm MV E/E' Septal: 10.10 CVP (est.): 5 mmHg LA Area: 13.5 cm2 MV E/E' Lateral: 8.50 LA Volume: 31 ml LA Volume Index: 17.9 ml/m2 Patient: KENDRICK HUTSON Study Date: 04/24/2017 Page 1 of 2 08:28 AM Findings: Left Ventricle: Normal size left ventricle. No LV hypertrophy. Global hypercontractility of the left ventricle. EF is 71 %. No regional wall motion abnormality. Diastolic dysfunction is present. . Right Ventricle: Normal size right ventricle. Normal RV function. Left Atrium: The left atrium is normal in size. Right Atrium: The right atrium is normal in size. Mitral Valve: The mitral valve is normal in appearance and function. Trivial mitral valve regurgitation. Aortic Valve: The aortic valve is normal in appearance and function. The aortic valve is tri-leaflet. There is no aortic valve regurgitation. Tricuspid Valve: The tricuspid valve is normal in appearance and function. Trivial tricuspid valve regurgitation. The pulmonary artery pressure is normal. Pulmonic Valve: The pulmonic valve is normal in appearance and function. Aorta: The aorta is normal. Pericardium: No pericardial effusion. (No Signature Object) Patient: KENDRICK HUTSON Study Date: 04/24/2017 Page 2 of 2 08:28 AM [id number]
--- NOTE | 2017-04-25 12:42 | ECHO ---
[email or web address] [address] [address] Main: [phone] Fax: Transthoracic Echocardiogram Name: KENDRICK HUTSON MR#: [id number] Study Date: 04/24/2017 Study Time: 08:28 AM Date of : 1950 Age: 66 year(s) Height: 162.6 cm (64 in.) Weight: 67.59 kg (149 lb.) BSA: 1.73 m2 Gender: Female Examination: Echo Indication: Increase in O2 needs, Pulmonary edema by CT scan Image Quality: Contrast: Requested by: Geovanna Spivey BP: 90 mmHg/65 mmHg Heart Rate: Rhythm: Normal sinus rhythm Indication: Increase in O2 needs, Pulmonary edema by CT scan Procedure Staff Orchard Pruner: Ulises Meyer Reading Physician: Owen Washington Requesting Provider: Conclusions: Global hypercontractility of the left ventricle. EF is 71 %. Diastolic dysfunction is present. . Trivial mitral valve regurgitation. Trivial tricuspid valve regurgitation. Measurements: Chambers Valvular Assessment AV/MV Valvular Assessment TV/PV Normal Normal Normal Name Value Range Name Value Range Name Value Range Ao Mary (MM): 2.8 cm (2.2 cm-3.7 AV Vmax: 1.14 m/s (1 m/s-1.7 TR Vmax: 1.81 mm/s ( - ) cm) m/s) TR PGmax: 13 mmHg ( - ) IVSd (2D): 0.9 cm (0.6 cm-1.1 AV maxP mmHg ( - ) syst. PAP: 18 mmHg ( - ) cm) LVOT Vmax: 0.89 m/s (0.7 m/s-1.1 PV Vmax: 0.90 m/s (0.6 m/s-0.9 LVDd (2D): 3.3 cm (3.9 cm-5.3 m/s) m/s) cm) MV E Vmax: 0.73 m/s ( - ) PV PGmax: 3 mmHg ( - ) LVDs (2D): 2.0 cm (2.1 cm-4 MV A Vmax: 0.85 m/s ( - ) cm) MV E/A: 0.86 ( - ) LVPWd (2D): 1.0 cm ( - ) LVEF (2D): 71 (>=54 %) Continued Measurements: Chambers Valvular Assessment AV/MV Valvular Assessment TV/PV Name Value Name Value Name Value LADs Lon.5 cm MV E/E' Septal: 10.10 CVP (est.): 5 mmHg LA Area: 13.5 cm2 MV E/E' Lateral: 8.50 LA Volume: 31 ml LA Volume Index: 17.9 ml/m2 Patient: KENDRICK HUTSON Study Date: 04/24/2017 Page 1 of 2 08:28 AM Findings: Left Ventricle: Normal size left ventricle. No LV hypertrophy. Global hypercontractility of the left ventricle. EF is 71 %. No regional wall motion abnormality. Diastolic dysfunction is present. . Right Ventricle: Normal size right ventricle. Normal RV function. Left Atrium: The left atrium is normal in size. Right Atrium: The right atrium is normal in size. Mitral Valve: The mitral valve is normal in appearance and function. Trivial mitral valve regurgitation. Aortic Valve: The aortic valve is normal in appearance and function. The aortic valve is tri-leaflet. There is no aortic valve regurgitation. Tricuspid Valve: The tricuspid valve is normal in appearance and function. Trivial tricuspid valve regurgitation. The pulmonary artery pressure is normal. Pulmonic Valve: The pulmonic valve is normal in appearance and function. Aorta: The aorta is normal. Pericardium: No pericardial effusion. (No Signature Object) Patient: KENDRICK HUTSON Study Date: 04/24/2017 Page 2 of 2 08:28 AM [id number]
--- NOTE | 2017-04-25 12:42 | ECHO ---
[email or web address] [address] [address] Main: [phone] Fax: Transthoracic Echocardiogram Name: KENDRICK HUTSON MR#: [id number] Study Date: 04/24/2017 Study Time: 08:28 AM Date of : 1950 Age: 66 year(s) Height: 162.6 cm (64 in.) Weight: 67.59 kg (149 lb.) BSA: 1.73 m2 Gender: Female Examination: Echo Indication: Increase in O2 needs, Pulmonary edema by CT scan Image Quality: Contrast: Requested by: Geovanna Spivey BP: 90 mmHg/65 mmHg Heart Rate: Rhythm: Normal sinus rhythm Indication: Increase in O2 needs, Pulmonary edema by CT scan Procedure Staff Rehab Physician: Ulises Meyer Reading Physician: Owen Washington Requesting Provider: Conclusions: Global hypercontractility of the left ventricle. EF is 71 %. Diastolic dysfunction is present. . Trivial mitral valve regurgitation. Trivial tricuspid valve regurgitation. Measurements: Chambers Valvular Assessment AV/MV Valvular Assessment TV/PV Normal Normal Normal Name Value Range Name Value Range Name Value Range Ao Mary (MM): 2.8 cm (2.2 cm-3.7 AV Vmax: 1.14 m/s (1 m/s-1.7 TR Vmax: 1.81 mm/s ( - ) cm) m/s) TR PGmax: 13 mmHg ( - ) IVSd (2D): 0.9 cm (0.6 cm-1.1 AV maxP mmHg ( - ) syst. PAP: 18 mmHg ( - ) cm) LVOT Vmax: 0.89 m/s (0.7 m/s-1.1 PV Vmax: 0.90 m/s (0.6 m/s-0.9 LVDd (2D): 3.3 cm (3.9 cm-5.3 m/s) m/s) cm) MV E Vmax: 0.73 m/s ( - ) PV PGmax: 3 mmHg ( - ) LVDs (2D): 2.0 cm (2.1 cm-4 MV A Vmax: 0.85 m/s ( - ) cm) MV E/A: 0.86 ( - ) LVPWd (2D): 1.0 cm ( - ) LVEF (2D): 71 (>=54 %) Continued Measurements: Chambers Valvular Assessment AV/MV Valvular Assessment TV/PV Name Value Name Value Name Value LADs Lon.5 cm MV E/E' Septal: 10.10 CVP (est.): 5 mmHg LA Area: 13.5 cm2 MV E/E' Lateral: 8.50 LA Volume: 31 ml LA Volume Index: 17.9 ml/m2 Patient: KENDRICK HUTSON Study Date: 04/24/2017 Page 1 of 2 08:28 AM Findings: Left Ventricle: Normal size left ventricle. No LV hypertrophy. Global hypercontractility of the left ventricle. EF is 71 %. No regional wall motion abnormality. Diastolic dysfunction is present. . Right Ventricle: Normal size right ventricle. Normal RV function. Left Atrium: The left atrium is normal in size. Right Atrium: The right atrium is normal in size. Mitral Valve: The mitral valve is normal in appearance and function. Trivial mitral valve regurgitation. Aortic Valve: The aortic valve is normal in appearance and function. The aortic valve is tri-leaflet. There is no aortic valve regurgitation. Tricuspid Valve: The tricuspid valve is normal in appearance and function. Trivial tricuspid valve regurgitation. The pulmonary artery pressure is normal. Pulmonic Valve: The pulmonic valve is normal in appearance and function. Aorta: The aorta is normal. Pericardium: No pericardial effusion. (No Signature Object) Patient: KENDRICK HUTSON Study Date: 04/24/2017 Page 2 of 2 08:28 AM [id number]
--- NOTE | 2017-04-25 14:58 | PDINTPN ---
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 Minimal residua on CT. Asthma: No signs of significant obstruction currently, no significant mucous plugs on CT. On Advair, nebs. Hypoxemia: Likely due to atelectasis as well as asthma and resolving pneumonia as well. Corrects with low-flow oxygen. Plan: Continue Current Rx. Encouraged ambulation and IS. I expect her hypoxemia will improve as her activity level improves and with time. 04/25/17 14:54 04/25/17 14:58 Subjective: Feels that energy is a bit better. Minimal cough. Distressed regarding hypoxemia. Objective: Vital Signs Temp Pulse Resp BP Pulse Ox 36.5 C 108 H 18 104/73 91 L 04/25/17 12:00 04/25/17 12:00 04/25/17 12:00 04/25/17 12:00 04/25/17 12:00 Laboratory Results 04/24/17 04:41 04/24/17 04:41 04/24/17 04/25/17 04/26/17 05:59 05:59 05:59 Intake Total 750 300 Balance 750 300 PT 12.8 SEC (12.0-15.0) 04/21/17 19:12 INR 0.97 (0.83-1.16) 04/21/17 19:12 Physical Exam - Physical Exam General Appearance: alert, no apparent distress EENT: normal ENT inspection Neck: normal inspection Respiratory: rales (bases), No respiratory distress Cardiac/Chest: regular rate, rhythm, No edema Abdomen: normal bowel sounds, non-tender, soft Skin: normal color, warm/dry Extremities: normal inspection Neuro/Psych: alert, normal mood/affect, oriented x 3 ICD10 Worksheet Patient Problems: Problems Problem Status Onset Community acquired pneumonia Acute Failure of outpatient treatment Acute Urinary tract infection Acute
[2017-04-25] MEDS: ATORVASTATIN CALCIUM 10 MG TAB PO SCH (20:44)
[2017-04-26] MEDS: SALMETEROL PO SCH (05:02)
[2017-04-26] MEDS: FLUTICASONE PO SCH (05:02)
[2017-04-26] MEDS: IPRATROPIUM/ALBUTEROL 3 ML DEYVIAL IH SCH ×2 (05:44→10:47)
[2017-04-26] MEDS ORDERED: COSYNTROPIN 0.25 MG/2 ML SYRINGE IVP ONE (06:00)
[2017-04-26 08:09] VITALS: BP 93/53; TEMP 98.8
[2017-04-26] MEDS: PREGABALIN 75 MG CAP PO SCH (10:05)
[2017-04-26] MEDS: DULoxetine 60 MG CAP PO SCH (10:05)
[2017-04-26] MEDS: CHOLECALCIFEROL VIT D3 1,000 UNITS TAB PO SCH (10:05)
[2017-04-26] MEDS: CETIRIZINE 10 MG TAB PO SCH (10:05)
[2017-04-26] MEDS: guaiFENesin 600 MG TAB.ER PO SCH (10:05)
[2017-04-26] MEDS: ENOXAPARIN 40 MG/0.4 ML SYR SC SCH (10:05)
[2017-04-26 10:52] VITALS: PULSE 90; RESP 16; O2SAT 90
--- NOTE | 2017-04-26 11:07 | PDHOMEO2F ---
Home Oxygen Face to Face Home Orders: I certify that a physician or a nurse practitioner or physician's office administrative assistant has had a zymt-[id number] encounter with this patient on the date of this order due to the diagnosis listed, which relates to the primary reason the patient requires home oxygen. Alternative treatments have been tried, or considered, and deemed ineffective. It is anticipated that supplemental oxygen will result in improvement with treatment. Home oxygen qualifying diagnosis: chronic bronchitis SpO2 on room air (%): 87 Frequency of home oxygen needed: continuous Home oxygen liters per minute: 2 Home oxygen delivery device: nasal cannula Concentrator: Yes E-tanks for mobility and back up: Yes If ordering portable O2, is the patient mobile in the home?: Yes I certify that, based on these findings, the home oxygen is medically necessary for this patient for the following length of time. Length of time home oxygen needed: 1 month
--- NOTE | 2017-04-26 11:07 | PDHOMEO2F ---
Home Oxygen Face to Face Home Orders: I certify that a physician or a nurse practitioner or physician's assistant spa manager has had a capa-ee-gmne encounter with this patient on the date of this order due to the diagnosis listed, which relates to the primary reason the patient requires home oxygen. Alternative treatments have been tried, or considered, and deemed ineffective. It is anticipated that supplemental oxygen will result in improvement with treatment. Home oxygen qualifying diagnosis: chronic bronchitis SpO2 on room air (%): 87 Frequency of home oxygen needed: continuous Home oxygen liters per minute: 2 Home oxygen delivery device: nasal cannula Concentrator: Yes E-tanks for mobility and back up: Yes If ordering portable O2, is the patient mobile in the home?: Yes I certify that, based on these findings, the home oxygen is medically necessary for this patient for the following length of time. Length of time home oxygen needed: 1 month
--- NOTE | 2017-04-26 11:07 | PDHOMEO2F ---
Home Oxygen Face to Face Home Orders: I certify that a physician or a nurse practitioner or physician's health information assistant has had a [id number]-rl-vvgu encounter with this patient on the date of this order due to the diagnosis listed, which relates to the primary reason the patient requires home oxygen. Alternative treatments have been tried, or considered, and deemed ineffective. It is anticipated that supplemental oxygen will result in improvement with treatment. Home oxygen qualifying diagnosis: chronic bronchitis SpO2 on room air (%): 87 Frequency of home oxygen needed: continuous Home oxygen liters per minute: 2 Home oxygen delivery device: nasal cannula Concentrator: Yes E-tanks for mobility and back up: Yes If ordering portable O2, is the patient mobile in the home?: Yes I certify that, based on these findings, the home oxygen is medically necessary for this patient for the following length of time. Length of time home oxygen needed: 1 month
--- NOTE | 2017-04-26 16:07 | ASDISCHSUM ---
Discharge Information Plan Status:Home with No Needs Medically Cleared to Leave:04/25/2017 Discharge Date:04/26/2017 02:07 PM D/C Disposition: ADT D/C Disposition:Home, Routine, Self-Care Projected Discharge Date:04/26/2017 12:00 AM Transportation at D/C: Discharge Delay Reason: Follow-Up Date:04/26/2017 12:00 AM Discharge Slot: Final Diagnosis: Placement Information Patient Contact Information Contact Name:DERRICK Relationship: Address:[address] Work Phone: City:[place] Alternate Phone: State/Zip Code:[place] [address] Email: Financial Information Financial Class:HMO and PPO Plans Primary Plan Desc: OUT OF STATE PPO Primary Plan Number:[id number] Secondary Plan Desc:MEDICARE INPATIENT Secondary Plan Number:[id number] Assessment Information [facility] CM Progress Note CM Note CM Note Notes: Reviewed chart for discharge plan, pt's progress. Pt admitted for community acquired pneumonia, likely viral. Per MD notes, pt was initially improving but is now requiring supplemental oxygen. 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 Anticipate pt will likely d/c home independently when stable, but may require home oxygen. CM will cont to follow for any potential needs. Current Discharge Plan: Home Independently w/ family support and poss home oxygen Date Signed: 04/22/2017 05:39 PM Electronically Signed By:Elaine Garcia RN Intervention Information Intervention Type:*Incorrect Registration Date of Service:04/21/2017 10:45 PM Patient Type:Observation Staff Member:STACIE Hughes Shelly Hours:0.25 Discipline: Severity:1 (0-1 Hours) Comment:Registered inpatient, admit order writ ten observation status.
--- NOTE | 2017-04-26 16:07 | ASDISCHSUM ---
Discharge Information Plan Status:Home with No Needs Medically Cleared to Leave:04/25/2017 Discharge Date:04/26/2017 02:07 PM D/C Disposition: ADT D/C Disposition:Home, Routine, Self-Care Projected Discharge Date:04/26/2017 12:00 AM Transportation at D/C: Discharge Delay Reason: Follow-Up Date:04/26/2017 12:00 AM Discharge Slot: Final Diagnosis: Placement Information Patient Contact Information Contact Name:DERRICK Relationship: Address:[address] Work Phone: City:[place] Alternate Phone: State/Zip Code:[place] [address] Email: Financial Information Financial Class:HMO and PPO Plans Primary Plan Desc: OUT OF STATE PPO Primary Plan Number:[id number] Secondary Plan Desc:MEDICARE INPATIENT Secondary Plan Number:[id number] Assessment Information [facility] CM Progress Note CM Note CM Note Notes: Reviewed chart for discharge plan, pt's progress. Pt admitted for community acquired pneumonia, likely viral. Per MD notes, pt was initially improving but is now requiring supplemental oxygen. 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 Anticipate pt will likely d/c home independently when stable, but may require home oxygen. CM will cont to follow for any potential needs. Current Discharge Plan: Home Independently w/ family support and poss home oxygen Date Signed: 04/22/2017 05:39 PM Electronically Signed By:Elaine Garcia RN Intervention Information Intervention Type:*Incorrect Registration Date of Service:04/21/2017 10:45 PM Patient Type:Observation Staff Member:STACIE Hughes Shelly Hours:0.25 Discipline: Severity:1 (0-1 Hours) Comment:Registered inpatient, admit order writ ten observation status.
--- NOTE | 2017-04-26 16:07 | ASDISCHSUM ---
Discharge Information Plan Status:Home with No Needs Medically Cleared to Leave:04/25/2017 Discharge Date:04/26/2017 02:07 PM D/C Disposition: ADT D/C Disposition:Home, Routine, Self-Care Projected Discharge Date:04/26/2017 12:00 AM Transportation at D/C: Discharge Delay Reason: Follow-Up Date:04/26/2017 12:00 AM Discharge Slot: Final Diagnosis: Placement Information Patient Contact Information Contact Name:DERRICK Relationship: Address:[address] Work Phone: City:[place] Alternate Phone: State/Zip Code:[place] [address] Email: Financial Information Financial Class:HMO and PPO Plans Primary Plan Desc: OUT OF STATE PPO Primary Plan Number:[id number] Secondary Plan Desc:MEDICARE INPATIENT Secondary Plan Number:[id number] Assessment Information [facility] CM Progress Note CM Note CM Note Notes: Reviewed chart for discharge plan, pt's progress. Pt admitted for community acquired pneumonia, likely viral. Per MD notes, pt was initially improving but is now requiring supplemental oxygen. 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 Anticipate pt will likely d/c home independently when stable, but may require home oxygen. CM will cont to follow for any potential needs. Current Discharge Plan: Home Independently w/ family support and poss home oxygen Date Signed: 04/22/2017 05:39 PM Electronically Signed By:Elaine Garcia RN Intervention Information Intervention Type:*Incorrect Registration Date of Service:04/21/2017 10:45 PM Patient Type:Observation Staff Member:STACIE Hughes Shelly Hours:0.25 Discipline: Severity:1 (0-1 Hours) Comment:Registered inpatient, admit order writ ten observation status.
--- NOTE | 2017-04-26 16:35 | PDINTPN ---
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 Minimal residua on CT. Asthma: No signs of significant obstruction currently, no significant mucous plugs on CT. On Advair, nebs. Improved symptoms, oxygenation. Hypoxemia: Likely due to atelectasis as well as asthma and resolving pneumonia as well. Corrects with low-flow oxygen. Plan: Continue Current Rx, including ambulation and IS. OK to discharge home on dvair. Follow-up with Dr. James in 2-4 weeks. 04/26/17 16:33 Subjective: Feels better, improved energy. Walking unit with minimal dyspnea. Objective: Vital Signs Temp Pulse Resp BP Pulse Ox 37.1 C 90 16 93/53 L 90 L 04/26/17 08:00 04/26/17 10:50 04/26/17 10:50 04/26/17 08:00 04/26/17 10:50 Laboratory Results 04/24/17 04:41 04/24/17 04:41 04/25/17 04/26/17 04/27/17 05:59 05:59 05:59 Intake Total 300 200 Balance 300 200 PT 12.8 SEC (12.0-15.0) 04/21/17 19:12 INR 0.97 (0.83-1.16) 04/21/17 19:12 Physical Exam - Physical Exam General Appearance: alert, no apparent distress EENT: normal ENT inspection Neck: normal inspection Respiratory: lungs clear, normal breath sounds Cardiac/Chest: regular rate, rhythm, No edema Abdomen: normal bowel sounds, non-tender, soft Skin: normal color, warm/dry Extremities: normal inspection Neuro/Psych: alert, normal mood/affect, oriented x 3 ICD10 Worksheet Patient Problems: Problems Problem Status Onset Community acquired pneumonia Acute Failure of outpatient treatment Acute Urinary tract infection Acute
--- NOTE | 2017-04-26 21:42 | GDS ---
[f rep st] DISCHARGE SUMMARY DISCHARGE DIAGNOSES: 1. Community-acquired pneumonia. 2. Acute hypoxemic respiratory failure. 3. Asthma. 4. Chronic bronchitis. 5. Chronic pain on continuous opioids. 6. Acute encephalopathy. 7. Cough. 8. Hypotension. 9. Pyuria. CONSULTATIONS: Pulmonology. STUDIES AND PROCEDURES DONE: CT angio of the chest. PHYSICAL EXAMINATION: GENERAL: The patient is alert. VITAL SIGNS: Afebrile at 37.1, pulse is 86, respiratory rate is 18, blood pressure is 93/53. She is saturating 88% on room air. I have seen and evaluated the patient on the day of discharge. HOSPITAL COURSE: The patient is a 66-year-old female, presented to the emergency room with complaint s of shortness of breath. She was evaluated and diagnosed with: 1. Community-acquired pneumonia. During this hospitalization, she was treated with supportive manag ement. 2. Acute hypoxemic respiratory failure. She is continued on supplemental oxygen. She did receive a consultation from Pulmonology with recommendations made. She will follow up with Pulmonology in the outpatient setting. 3. Asthma with chronic bronchitis. [facility] the [facility] 4. Chronic pain on continuous opioid. These medications have been continued during the hospitalizat ion. 5. Acute encephalopathy. This is secondary to the patient's acute illness and has completely resolv ed. 6. Hypotension. Medications have been held during this hospital course. DISPOSITION: The patient will be discharged home with supplemental oxygen. FOLLOW UP: Follow up will be in the outpatient setting with her primary care physician, as well as a dispatcher maintenance of her choice. PENDING STUDIES: There are no pending studies. DISCHARGE MEDICATIONS: Please refer to EMR form. I have not provided the patient with any prescript ions at the time of disposition. TIME SPENT: I spent greater than 35 minute in the care, coordination, and management of the patient' s discharge. /[id number]/MODL
--- NOTE | 2017-04-26 21:42 | GDS ---
[f rep st] DISCHARGE SUMMARY DISCHARGE DIAGNOSES: 1. Community-acquired pneumonia. 2. Acute hypoxemic respiratory failure. 3. Asthma. 4. Chronic bronchitis. 5. Chronic pain on continuous opioids. 6. Acute encephalopathy. 7. Cough. 8. Hypotension. 9. Pyuria. CONSULTATIONS: Pulmonology. STUDIES AND PROCEDURES DONE: CT angio of the chest. PHYSICAL EXAMINATION: GENERAL: The patient is alert. VITAL SIGNS: Afebrile at 37.1, pulse is 86, respiratory rate is 18, blood pressure is 93/53. She is saturating 88% on room air. I have seen and evaluated the patient on the day of discharge. HOSPITAL COURSE: The patient is a 66-year-old female, presented to the emergency room with complaint s of shortness of breath. She was evaluated and diagnosed with: 1. Community-acquired pneumonia. During this hospitalization, she was treated with supportive manag ement. 2. Acute hypoxemic respiratory failure. She is continued on supplemental oxygen. She did receive a consultation from Pulmonology with recommendations made. She will follow up with Pulmonology in the outpatient setting. 3. Asthma with chronic bronchitis. Again the patient will follow up Pulmonology outside the [facility]. 4. Chronic pain on continuous opioid. These medications have been continued during the hospitalizat ion. 5. Acute encephalopathy. This is secondary to the patient's acute illness and has completely resolv ed. 6. Hypotension. Medications have been held during this hospital course. DISPOSITION: The patient will be discharged home with supplemental oxygen. FOLLOW UP: Follow up will be in the outpatient setting with her primary care physician, as well as a pens and pencils dipper of her choice. PENDING STUDIES: There are no pending studies. DISCHARGE MEDICATIONS: Please refer to EMR form. I have not provided the patient with any prescript ions at the time of disposition. TIME SPENT: I spent greater than 35 minute in the care, coordination, and management of the patient' s discharge. /[id number]/MODL
[2017-04-28] MEDS ORDERED: ALENDRONATE SODIUM 70 MG TAB PO SCH (07:00)
== END 2017-04-26 14:07 | disposition home or self-care (01) | DRG 193 ==
LOC: INTOOBSV 21:04 → F3E 22:21 → OBSVTOIN 04-22 12:21
PROVIDERS: ADMIT Family Medicine; ATTEND Family Medicine
DX: J18.9 Pneumonia, unspecified organism (principal); J96.01 Acute respiratory failure with hypoxia; G93.40 Encephalopathy, unspecified; N39.0 Urinary tract infection, site not specified; J45.909 Unspecified asthma, uncomplicated; J42 Unspecified chronic bronchitis; G89.29 Other chronic pain; I95.9 Hypotension, unspecified
CPT/HCPCS: 84481-90; 92523-GN; 96365; G0378; G9165-GN-CI; G9166-GN-CI; J0834; J1650; J1956; Q9967